=== PATIENT | male | born 1970 | race Caucasian/White ===

== ENCOUNTER 2022-03-10 15:55 | Emergency (ER) | payer MEDICAID, OTHER ==
[~2022-03-10] VITALS: Ht 170.2 cm; Wt 77.1 kg
[2022-03-10] MEDS ORDERED: TETRACAINE HCL 0.5% OPTH(EYE) SOLN 4ML RIGHTEYE ONE (17:30)
[2022-03-10] MEDS ORDERED: TETANUS-DIPTH-ACEL PERTUSSIS 0.5ML SYR Tdap IM ONE (17:30)
[2022-03-10] MEDS ORDERED: DOXYCYCLINE 100 MG TAB/CAP PO ONE (17:30)
[2022-03-10] MEDS ORDERED: BACITRACIN TOP OINT 1 UD PKG TOP ONE (17:30)
[2022-03-10] MEDS ORDERED: FLUORESCEIN SOD OPTH TEST STRIP RIGHTEYE ONE (17:30)
[2022-03-10 21:24] VITALS: BP 130/82
[2022-03-10] MEDS ORDERED: POLYSOL15 OP (22:07)
== END 2022-03-10 22:40 | disposition home or self-care (01) ==
LOC: ER 15:55
DX: S05.01XA Injury of conjunctiva and corneal abrasion without foreign body, right eye, initial encounter (principal); Z79.899 Other long term (current) drug therapy; X58.XXXA Exposure to other specified factors, initial encounter; Y93.89 Activity, other specified; Y92.89 Other specified places as the place of occurrence of the external cause; Y99.8 Other external cause status
CPT/HCPCS: 90471; 90715

== ENCOUNTER 2025-05-24 17:19 | Emergency (ER) | payer MEDICAID ==
[~2025-05-24] VITALS: Ht 170.2 cm; Wt 75.0 kg
[~2025-05-24 17:19] MED LIST: POLYSOL28 OP
[2025-05-24 17:33] VITALS: TEMP 97.8
[2025-05-24] MEDS: ACETAMINOPHEN 325 MG TAB PO ONE (18:21)
[2025-05-24] MEDS: LIDOCAINE 1% HCL (LOCAL ANESTH.) INJ 20ML MDV ID ONE (18:21)
[2025-05-24] MEDS: TETANUS-DIPTH-ACEL PERTUSSIS 0.5ML SYR Tdap IM ONE (18:22)
--- NOTE | 2025-05-24 18:28 | ED.PDOC ---
History of Present Illness HPI Comments 55 yo M w/ no PMH presenting for evaluation of right thumb laceration which occurred shortly before arrival. Pt states he cut it on broken glass. Denies smashing the finger. No numbness or weakness of the thumb. Last tdap > 5 years ago. Chief Complaint: Laceration Time Seen by MD: 18:06 Allergies: Coded Allergies: NO KNOWN ALLERGIES (Unverified , 11/30/10) Home Meds Active Scripts Polymyxin B-Trimethoprim (Trimethoprim Sulfate/Poly) Polymyxn Radha, 2 DROP OP Q4HWA for 7 Days, #90 ML 0 Refills Prov:NACHO CONWAY MD 03/10/22 Mode of Arrival: Ambulatory Past Medical History PAST MEDICAL HISTORY: Denies Surgical History: Denies all surgeries Family History Family History: Unknown Constitutional: denies: chills, diaphoresis, fatigue, fever, malaise, sweats, weakness, others EENTM: denies: blurred vision, double vision, ear bleeding, ear discharge, ear drainage, ear pain, ear ringing, eye pain, eye redness, hearing loss, mouth pain, mouth swelling, nasal discharge, nose bleeding, nose congestion, nose pain, photophobia, tearing, throat pain, throat swelling, voice changes, others Respiratory: denies: cough, hemoptysis, orthopnea, SOB at rest, shortness of breath, SOB with excertion, stridor, wheezing, others Cardiovascular: denies: chest pain, dizzy spells, diaphoresis, Dyspnea on exertion, edema, irregular heart beat, left arm pain, lightheadedness, palpitations, PND, syncope, others Gastrointestinal: denies: abdomen distended, abdominal pain, blood streaked bowels, constipated, diarrhea, dysphagia, difficulty swallowing, hematemesis, melena, nausea, poor appetite, poor fluid intake, rectal bleeding, rectal pain, vomiting, others Genitourinary: denies: burning, dysuria, flank pain, frequency, hematuria, incontinence, penile discharge, penile sore, pain, testicle pain, testicle swelling, urgency, others Neurological: denies: dizziness, fainting, headache, left sided numbness, left sided weakness, numbness, paresthesia, pre-existing deficit, right sided numbness, right sided weakness, seizure, speech problems, tingling, tremors, weakness, others Musculoskeletal: denies: back pain, gout, joint pain, joint swelling, muscle pain, muscle stiffness, neck pain, others Integumetry: reports: laceration Hematologic/Lymphatic: denies: anemia, blood clots, easy bleeding, easy bruising, swollen glands, others Endocrine: denies: excessive hunger, excessive sweating, excessive thirst, excessive urination, flushing, intolerance to cold, intolerance to heat, unexplained weight gain, unexplained weight loss, others Physical Exam General Appearance: Normal HEENT: NOT DONE Neck: NOT DONE Respiratory: No Accessory Muscle Use, No Respiratory Distress, Normal Breath Sounds Cardiovascular: Normal Peripheral Pulses, Regular Rate/Rhythm Breast Exam: Deferred Gastrointestinal: Non Tender Genitalia: Deferred Pelvic: Deferred Rectal: Deferred Extremities: Normal capillary refill, Normal range of motion, Other (Right Thumb: 7 cm irregular laceration along palmar surface of thumb from base to distal tip, crossing MCP, FROM of thumb, +SILT, bleeding controlled) Neurologic: medical van driver II-XII nml as Tested, No Motor Deficits Cerebellar Function: Normal Reflexes: NOT DONE Skin: Lacerations Lymphatic: NOT DONE Was a procedure done? Was a procedure done?: Yes Sedation Sedation?: No Informed consent obtained: Yes Laceration Repair : Location Right Thumb palmar surface, irregular laceration Length 7cm Anesthetic: Lidocaine, Without epi, Digital nerve block Laceration Repair Prep: Saline, by Irrigation Laceration Repair Wound Comple: subcut tissue repair Laceration Repair: Number of sutures (10), Size (4-0), Nylon, Simple Informed consent obtained: Yes Risks, benefits, and alternati: Yes Notes simple interrupted sutures with overlying steri-strips for reinforcement Differential Dx Considerations may include: Simple laceration vs Tendon Injury vs Fracture vs Retained Foreign Body X-Ray, Labs, Meds, VS Vital Signs Date Time Temp Pulse Resp B/P (MAP) Pulse Ox O2 Delivery O2 Flow Rate FiO2 05/24/25 17:33 97.8 87 18 132/97 96 97.8 Current Medications Medications (Trade) Dose Ordered Sig/Saima Route Start Time Stop Time Status Last Admin Acetaminophen (Tylenol Tablet) 650 mg ONCE ONCE PO 05/24/25 18:15 05/24/25 18:16 DC 05/24/25 18:21 Diphtheria/ Tetanus/Acell Pertussis (Boostrix T-Dap) 0.5 ml ONCE ONCE IM 05/24/25 18:15 05/24/25 18:16 DC 05/24/25 18:22 Time of 1ST Reevaluation: 19:20 (laceration repair performed. Pt feeling improvement. ) Reevaluation 1ST: Resolved Patient Education/Counseling: Diagnosis, Treatment, Need For Follow Up Family Education/Counseling: Diagnosis, Treatment, Need For Follow Up SEPSIS Sepsis Screen Date sepsis recognized/suspect: May 24, 2025 Time Sepsis recognized/suspect: 1735 Recent Procedure: No On Antibiotic Therapy: No Respiratory Rate >20: No Heart Rate >90: No Temp<36 C (96.8 F) or >38.3 C: No SBP <90 or MAP <65 mmHG: No New Acute Mental Status Change: No Is the patient on CPAP, BIPAP,: No Vital Signs Date Time Temp Pulse Resp B/P (MAP) Pulse Ox O2 Delivery O2 Flow Rate FiO2 05/24/25 17:33 97.8 87 18 132/97 96 97.8 Medications Medications Dose Ordered Sig/Saima Route Start Time Stop Time Status Last Admin Dose Admin Acetaminophen 650 mg ONCE ONCE PO 05/24/25 18:15 05/24/25 18:16 DC 05/24/25 18:21 Diphtheria/ Tetanus/Acell Pertussis 0.5 ml ONCE ONCE IM 05/24/25 18:15 05/24/25 18:16 DC 05/24/25 18:22 Departure 1 Departure Time of Disposition: 19:24 (55 yo M right hand dominant male is presenting for simple laceration of right thumb. Pt's tdap is not UTD, pt given tdap for prophylaxis. Was given tylenol for analgesia. Laceration appears superficial in nature, has FROM of the thumb, not concerning for underlying nerve or tendon injury. No evidence of retained foreign body, did not have a crush injury, does not require X-ray as I do not suspect underlying fracture or retained foreign body. Laceration was repaired with sutures. Stable for discharge. Advised to return in 7-10 days for suture removal. However, advised to return earlier for developing signs of infection.) Impression: Primary Impression: Laceration of right thumb Disposition: HOME / SELF CARE / HOMELESS Condition: Stable Additional Instructions: Please call your primary care doctor to see if they do suture removals. If not, return to the ER in 7-10 days to have your sutures removed. Return to the emergency department sooner if you start to notice increased redness, swelling pus like drainage or any other concerning symptoms. Discharged With: Self Critical Care Note Critical Care Time?: No Stability Stability form required: KB Silva MD May 24, 2025 18:28
[2025-05-24 19:37] VITALS: BP 141/91; PULSE 78; RESP 18; O2SAT 97
== END 2025-05-24 19:40 | disposition home or self-care (01) ==
LOC: ER 17:19
DX: S61.011A Laceration without foreign body of right thumb without damage to nail, initial encounter (principal); W25.XXXA Contact with sharp glass, initial encounter; Y93.89 Activity, other specified; Y92.89 Other specified places as the place of occurrence of the external cause; Y99.8 Other external cause status
CPT/HCPCS: 12002; 90471; 90715; 99283; J2003